=== PATIENT | female | born 1985 | race Caucasian/White ===

== ENCOUNTER 2024-03-07 01:04 | Emergency (ER) | payer OTHER, SELFPAY ==
[2024-03-07 01:12] VITALS: BP 156/104
--- NOTE | 2024-03-07 02:30 | ED.GENMED ---
History of Present Illness
General
Chief Complaint: Musculo-Skeletal Complaint
Source: patient
Time Seen by Provider: 03/07/24 02:24
History of Present Illness
History of Present Illness:
38-year-old female with past medical history of previous stomach ulcer presenting to the ER for evaluation of right knee pain after she injured it twice in the last 4 days. Patient states that she excellently tripped and fell onto the right knee
and then this evening while attempting to ambulate throughout her house states her right knee gave out from her and caused her to land on the right knee again. Since that time she notes that she felt a popping sensation and has been having
difficulty ambulating and placing full weight onto the right lower extremity. Denies any previous history of injury or surgery. No other concerns.
Past History
Past History
ED Past Medical History: GERD and Other (Lumbar disc disease)
ED Past Surgical History: Orthopedic
Social History
Tobacco: Non-smoker
Alcohol: None
Drug: None
Personal: Single
Living: with family
Employment: Not employed
Family History
Family History: Other (Noncontributory)
Review of Systems
Review of Systems
All Other Systems: ROS reviewed and negative except as documented in HPI and ROS
Phy Exam
Physical Exam
Physical Exam:
GENERAL: Alert , in no apparent distress
EYE: conjunctiva clear
Head: Normocephalic atraumatic
NECK: Supple,
ENT: mmm.
LUNGS: no acute respiratory distress
NEUROLOGICAL: Alert and oriented
SKIN: Warm and dry, skin intact.
MUSCULOSKELETAL: RLE: no obvious deformity, erythema, edema, ecchymosis. Allows for ROM but with discomfort. mild ttp anteriorly over patella
PSYCH: Normal and appropriate interaction.
Scores
Heart Failure Risk
Heart Failure Risk Score: Not Applicable
Heart Score for Chest Pain Patients
STEMI patient?: Not applicable
Withdrawal Assessment of Alcohol
Withdrawal Assessment Completed?: Not applicable
Course
Orders/Labs/Results
Orders:
Orders
03/07/24 01:38
Knee, Right 4 or More Views [CR Knee- Right 4 Or More View*] Urgent
Comment:
Reason For Exam: fall
03/07/24 02:24
Crutches-Treatment ONCE
Vital Signs
Initial and Last Documented VS:
Initial Vital Signs
Temp Pulse Resp BP Pulse Ox
97.8 F 80 24 156/104 98
03/07/24 01:12 03/07/24 01:12 03/07/24 01:12 03/07/24 01:12 03/07/24 01:12
Last Documented Vital Signs
Temp Pulse Resp BP Pulse Ox
97.8 F 80 24 156/104 98
03/07/24 01:12 03/07/24 01:12 03/07/24 01:12 03/07/24 01:12 03/07/24 01:12
MDM/Problems Addressed
Differential Diagnosis Includes:
knee sprain, contusion, ligamentous injury, fracture
MDM/Problems Addressed:
38-year-old female presenting to the emergency department for evaluation of right-sided knee pain following 2 separate falls/injuries. Based off mechanism I have minimal suspicion for fracture. Will obtain x-ray. Advised patient she may need to
follow-up with orthopedics for further evaluation and potential more advanced imaging if symptoms persist. Will place in knee immobilizer and crutches. Given her history of stomach ulcers patient unable to take NSAIDs. Advise she may take Tylenol
as needed for pain. Anticipate discharge home.
*Radiology
Radiology exam reviewed: preliminary read by ED provider (no fx)
*Pulse Oximetry
Patient hypoxic: no
*Critical Care Note
Total Time (30-74mins, 75-104mins- exclusive of procedures): Not Applicable
Patient Management
Escalation/DeEscalation of care consider admission/obs:
XR without evidence for fracture. Patient declines immobilizer but would like [place] wrap. Crutches supplied. Stable for d/c and outpatient ortho management as needed
ED Attending Note
-
Portions of this chart may have been created with voice recognition software.� Occasional wrong word or��sound alike� substitutions may have occurred due to the inherent limitations of voice recognition software.
Discharge Plan
Departure
Patient Disposition: Home (Routine Discharge)
Date of Disposition: 03/07/24
Time of Disposition: 02:41
Patient with high blood pressure during this ER visit?: Yes
Discharge Problem:
Knee pain, right
Instructions: Knee Pain ED
Prescriptions:
No Action
acetaminophen 325 MG tablet
650 mg PO Q4HPRN PRN (Reason: pain)
tramadol [Ultram] 50 MG tablet
50 mg PO PRN PRN (Reason: pain)
Patient Comments:
back pain
pantoprazole 40 MG tablet,delayed release (DR/EC)
40 mg PO DAILY
Referrals:
Vinay Montes De Oca MD [Active] - (Ortho)
Stand Alone Forms: Return to Work
Interventions
Interventions:
*Risk Screen - Suicide Last Done: 03/07/24 01:12
*Neglect/Abuse Screening Last Done: 03/07/24 01:12
*Nursing Disposition Last Done: 03/07/24 03:40
ED-Musculoskeletal Assessment Last Done: 03/07/24 03:40
Discharge Date and Time
Discharge Date/Time: 03/07/24 03:41
Print Language: ITALIAN
== END 2024-03-07 03:41 | disposition home or self-care (01) ==
LOC: EMR 01:04
PROVIDERS: EMERGENCY PHYSICIAN Emergency Medicine; FAMILY PHYSICIAN Nurse Practitioner
DX: M25.561 Pain in right knee (principal); W01.0XXA Fall on same level from slipping, tripping and stumbling without subsequent striking against object, initial encounter; K21.9 Gastro-esophageal reflux disease without esophagitis; Z87.11 Personal history of peptic ulcer disease
CPT/HCPCS: 99283; 73564

== ENCOUNTER 2024-07-07 21:19 | Emergency (ER) | payer OTHER, SELFPAY ==
[2024-07-07 21:28] VITALS: BP 161/102
[2024-07-07 21:47] LABS: % Basophils 0.7 % (0-2); % Eosinophils 0.9 % (0-6); % Immature Granulocytes 0.5 % (0-0.5); % Lymphocytes 19.2 % (20.5-51.1); % Monocytes 5.7 % (1.7-9.3); Absolute Basophils 0.1 10^3/uL (0-0.2); Absolute Eosinophils 0.1 10^3/uL (0-0.7); Absolute Immature Granulocytes 0.1 10^3/uL (0-0.05); Absolute Lymphocytes 2.2 10^3/uL (1.2-3.4); Absolute Monocytes 0.7 10^3/uL (0.1-0.6); Absolute Neutrophils 8.5 10^3/uL (1.4-6.5); Hematocrit 43.1 % (37.0-47.0); Hemoglobin 14.8 g/dL (12.0-16.0); Mean Corp Hgb Conc. 34.3 g/dL (33.0-37.0); Mean Corpuscular Hgb 27.1 pg (27.0-31.0); Mean Corpuscular Volume 78.8 fL (81.0-99.0); Mean Platelet Volume 10.1 fL (7.4-10.4); Nucleated Red Blood Cells % 0 %; Platelet Count 273 10^3/uL (130-400); Red Blood Cell Count 5.47 10^6/uL (4.20-5.40); Red Cell Dist. Width 12.9 % (11.5-14.5); White Blood Cell Count 11.6 10^3/uL (4.8-10.8)
[2024-07-07 21:54] LABS: Urine Albumin 2+ (Neg - Trace); Urine Bilirubin Negative (Negative); Urine Character Clear (Clear); Urine Color Yellow; Urine Glucose 4+ (Negative); Urine Ketone 2+ (Negative); Urine Leukocyte Negative (Negative); Urine Nitrite Negative (Negative); Urine Occult Blood 3+ (Negative); Urine Specific Gravity 1.025 (<1.030); Urine Urobilinogen Negative (Neg - 1+)
[2024-07-07 21:56] LABS: HCG, Serum Qualitative Screen Negative
[2024-07-07 22:01] LABS: ALT (SGPT) 49 U/L (0-35); AST (SGOT) 37 U/L (14-36); Albumin 4.4 g/dl (3.5-5.0); Alkaline Phosphatase 174 U/L (38-126); Blood Urea Nitrogen 18 mg/dl (7-17); Calcium 10.2 mg/dl (8.4-10.2); Carbon Dioxide 26 mmol/L (22-30); Chloride 97 mmol/L (98-107); Glucose 364 mg/dl (70-99); Potassium 4.2 mmol/L (3.5-5.1); Sodium 134 mmol/L (135-145); Total Bilirubin 0.9 mg/dl (0.2-1.3); Total Protein 7.3 g/dl (6.3-8.2); eGFR > 60.00
[2024-07-07 22:26] LABS: Urine Squamous Cell 26-30 /LPF (Few); Urine White Cell 0-2 /HPF (0-5)
[2024-07-08] VITALS: BMI 37.3
[2024-07-08 00:03] VITALS: BP 128/76
[2024-07-08] MEDS: NSS 1000 IV (01:09)
--- NOTE | 2024-07-08 01:21 | ED.GENMED ---
History of Present Illness
General
Chief Complaint: Abnormal Lab Value
Source: patient
Exam Limitations: none
Time Seen by Provider: 07/08/24 00:23
Nursing documentation reviewed up to this point in time: agreed with
History of Present Illness
History of Present Illness:
39-year-old female presenting to the emergency department for evaluation of elevated blood sugar. Patient states she has been dealing with a sinus infection for which she has completed a course of doxycycline without complete resolution symptoms.
She was seen in an urgent care facility yesterday regarding persistent sinus infection where she was found to have an elevated heart rate, elevated white blood cell count, and elevated glucose level. They were unable to obtain IV access to provide
IV fluids and therefore today it was recommended she come to the emergency department.
Patient does state that she was started on a new antibiotic yesterday by urgent care however she does not remember the name. Patient has been trying to stay well-hydrated although states she has been very busy with her kids. Patient denies any
fever, abdominal pain, nausea/vomiting, or diarrhea. Patient states her sinus infection symptoms are mildly improved today. No severe headache, dizziness, visual changes, etc.
She also reports mild lower back discomfort which is mildly worse than her baseline.
Patient does not have a known history of diabetes although she did suffer from gestational diabetes in one of her pregnancies
Past History
Past History
ED Past Medical History: GERD and Other (Lumbar disc disease)
ED Past Surgical History: Orthopedic
Social History
Tobacco: Non-smoker
Alcohol: None
Drug: None
Personal: Single
Living: with family
Employment: Not employed
Family History
Family History: Other (Noncontributory)
Review of Systems
Review of Systems
Allergies reviewed?: Yes
All Other Systems: ROS reviewed and negative except as documented in HPI and ROS
Phy Exam
Physical Exam
Physical Exam:
Vitals: Hypertensive and mildly tachycardic on arrival although improved by my assessment. Afebrile
General: Patient is well appearing, no acute distress
Skin: Warm and dry, no rashes or lesions
Head: Normocephalic, atraumatic
Eyes: Sclera nonicteric. EOMs intact. No nystagmus.
Throat: Mildly dry mucous membranes. Protecting airway
Neck: Normal ROM, no cervical spine tenderness, no meningismus
Cardiac: Regular rate and rhythm, no murmurs.
Pulm: Normal respiratory effort, no wheezes, rales, rhonchi heard on exam.
Abdomen: Abdomen soft and nontender. No abdominal tenderness. No CVA tenderness.
Back: No midline spinal tenderness.
Extremities: No evidence of cyanosis or edema. Palpable DP pulses bilaterally
Neuro: AAOx3. Grossly intact.
Psychiatric: Normal affect.
Course
Orders/Labs/Results
Orders:
Orders
07/07/24 21:30
Electrocardiogram (*1) Urgent
Reason for Study: Chest Pain
EKG- Treatment ONCE
Test Result ONCE
07/07/24 21:39
Complete Blood Count/With Diff Urgent
Comprehensive Metabolic Panel Urgent
HCG, Serum Qualitative Screen Urgent
Comment: Notify provider if positive test present
07/07/24 21:45
Urinalysis Reflex To Culture Urgent
Date Specimen was Collected: 07/07/24
Time Specimen was Collected: 21:30
Urine Microscopic Reflex Cult Urgent
07/08/24 00:38
0.9% Sodium Chloride 1000 ml [Nss] 1,000 ml IV BOLUS
07/08/24 01:11
US Abdomen Complete/Upper Urgent
Comment:
Reason For Exam: low back pain, elevated LFTs
Abnormal Lab Results
07/07/24 07/07/24 07/08/24
21:39 21:45 02:37
WBC 11.6 H 10^3/uL
(4.8-10.8)
RBC 5.47 H 10^6/uL
(4.20-5.40)
MCV 78.8 L fL
(81.0-99.0)
Abs Immat Gran (auto) 0.1 H 10^3/uL
(0-0.05)
Absolute Neuts (auto) 8.5 H 10^3/uL
(1.4-6.5)
Absolute Monos (auto) 0.7 H 10^3/uL
(0.1-0.6)
Lymphocytes % 19.2 L %
(20.5-51.1)
Sodium 134 L mmol/L
(135-145)
Chloride 97 L mmol/L
(98-107)
BUN 18 H mg/dl
(7-17)
Glucose 364 H mg/dl
(70-99)
AST 37 H U/L
(14-36)
ALT 49 H U/L
(0-35)
Alkaline Phosphatase 174 H U/L
(38-126)
Urine Ketones 2+ A
(Negative)
Ur Occult Blood Reflex 3+ A
(Negative)
Urine RBC 7-10 A /HPF
(0-2)
Urine Glucose 4+ A
(Negative)
Urine Albumin (Reflex) 2+ A
(Neg - Trace)
POC Glucose 261 H mg/dl
(70-99)
07/07/24 21:39
07/07/24 21:39
Vital Signs
Initial and Last Documented VS:
Initial Vital Signs
Temp Pulse Resp BP Pulse Ox
97.8 F 112 20 161/102 99
07/07/24 21:28 07/07/24 21:28 07/07/24 21:28 07/07/24 21:28 07/07/24 21:28
Last Documented Vital Signs
Temp Pulse Resp BP Pulse Ox
98.8 F 90 17 127/67 99
07/08/24 00:03 07/08/24 02:15 07/08/24 02:15 07/08/24 02:15 07/08/24 02:15
MDM/Problems Addressed
Differential Diagnosis Includes:
Not limited to: Acute hyperglycemia, new onset diabetes, acute dehydration, sinusitis, nephrolithiasis, UTI, etc.
MDM/Problems Addressed:
39-year-old female currently being treated for sinusitis presents with hyperglycemia and concerns for dehydration. Patient denies fever, abdominal pain, nausea/vomiting or diarrhea. Patient initially hypertensive and tachycardic on arrival
although improved by my assessment. Patient is afebrile. Physical exam as above. Basic labs initiated in triage and reviewed. Mild leukocytosis of 11.6. Chemistry shows acute hyperglycemia with glucose of 364 without anion gap. Transaminitis
noted. test negative. Urine does show 7-10 RBCs although patient thinks she may be starting her menstrual cycle. EKG without acute abnormalities. Patient appears dry. Suspect acute hyperglycemia related to acute dehydration and
possible infectious component with sinusitis. Other considerations include potentially prediabetes/new onset diabetes. Low suspicion for acute abdominal process including obstructive uropathy. Do not feel CT imaging warranted at this time.
However�will obtain abdominal ultrasound given microscopic hematuria and transaminitis. Will obtain IV access and give 1 L IV fluid and reassess glucose levels.
Update: Ultrasound of abdomen without acute findings. Patient did receive 1 L IV fluids. Patient's vital signs have normalized. Her glucose has decreased to 261. Patient very well-appearing and afebrile without evidence of significant infectious
process at this time. Do not feel admission is indicated at this time. I suspect some component of dehydration however discussed with patient importance of completing antibiotic therapy for suspected sinusitis and very close follow-up with PCP
given hyperglycemia. Considered steroids given persistent sinusitis although will avoid given hyperglycemia. Advised patient to stay very well-hydrated and follow with PCP to have glucose and LFTs rechecked. Close return precautions discussed.
Patient verbalized understanding. Case discussed with attending physician.
Chronic conditions affecting care:
N/A
Acute Exacerbation and/or Progression of Chronic Illness:
Acute hyperglycemia
*Radiology
Radiology exam reviewed: radiology read reviewed
*Pulse Oximetry
Patient hypoxic: no
*EKG
Interpreted by ED Provider?: Yes
EKG Intrepretation Date: 07/08/24
Interpretation: abnormal
Comparison EKG: no changes
Heart Rate: 108
Rate: tachycardiac
Rhythm: sinus
[place]: normal axis
Interval: normal interval
QRS Pattern: normal QRS
Ischemia: no ischemia
*[employer] Interpretation
Rate: normal
Interpretation: normal
Heart Rate: 92
Rhythm: sinus
*Critical Care Note
Total Time (30-74mins, 75-104mins- exclusive of procedures): Not Applicable
ED Attending Note
-
Portions of this chart may have been created with voice recognition software.� Occasional wrong word or��sound alike� substitutions may have occurred due to the inherent limitations of voice recognition software.
Discharge Plan
Departure
Patient Disposition: Home (Routine Discharge)
Date of Disposition: 07/08/24
Time of Disposition: 02:51
Patient with high blood pressure during this ER visit?: Yes
Condition: Good
Covid-19: Not Applicable
Discharge Problem:
Acute hyperglycemia, Acute dehydration
Instructions: Dehydration, Adult (DC), High blood sugar in adults - ED discharge instructions, BLOOD PRESSURE
Prescriptions:
No Action
acetaminophen 325 MG tablet
650 mg PO Q4HPRN PRN (Reason: pain)
tramadol [Ultram] 50 MG tablet
50 mg PO PRN PRN (Reason: pain)
Patient Comments:
back pain
pantoprazole 40 MG tablet,delayed release (DR/EC)
40 mg PO DAILY
Referrals:
UNKNOWN - PT DOES,NOT KNOW [Family Provider] -
Activity Restrictions/Additional Instructions:
RETURN TO THE EMERGENCY DEPARTMENT WITH ANY HIGH FEVERS, SEVERE HEADACHE, SEVERE ABDOMINAL PAIN, INTRACTABLE NAUSEA/VOMITING, WORSENING IN CURRENT SYMPTOMS, OR ANY OTHER CONCERNS
-As discussed�your ultrasound the emergency department showed no acute abnormalities today.
-Your blood sugar was elevated at 364 upon arrival to the emergency department. You did receive a liter of IV fluids. Your blood sugar decreased to 261 following IV fluids.
-It is important that you stay very well-hydrated. Continue to take your antibiotics as prescribed.
-As discussed�your liver function tests were also elevated in the emergency department. You should have these rechecked with your primary care provider in a few weeks to ensure that they normalize
-Follow-up with primary regarding elevated blood sugar as this may require further testing
Monitor your symptoms closely and return to the emergency department with any acute worsening/new symptoms or any other concerns
Interventions
Interventions:
*Risk Screen - Suicide Last Done: 07/07/24 21:28
*General Assessment Last Done: 07/08/24 00:01
*Neglect/Abuse Screening Last Done: 07/07/24 21:28
*ED COVID-19 Vaccine History Last Done: 07/08/24 00:01
*Nursing Disposition Last Done: 07/08/24 03:07
Discharge Date and Time
Discharge Date/Time: 07/08/24 03:07
Print Language: HUNGARIAN
[2024-07-08 02:15] VITALS: BP 127/67
[2024-07-08 02:38] LABS: Glucose - Point of Care 261 mg/dl (70-99)
== END 2024-07-08 03:07 | disposition home or self-care (01) ==
LOC: EMR 21:19
PROVIDERS: Student in an Organized Health Care Education/Training Program; EMERGENCY PHYSICIAN Student in an Organized Health Care Education/Training Program
DX: R73.9 Hyperglycemia, unspecified (principal); K21.9 Gastro-esophageal reflux disease without esophagitis; E86.0 Dehydration; R31.29 Other microscopic hematuria
CPT/HCPCS: 99284; 96360; 76700; 80053; 81003; 81015; 82962; 84703; 85025; 93005

== ENCOUNTER 2024-08-04 12:46 | Emergency (ER) | payer OTHER, SELFPAY ==
[2024-08-04 12:51] VITALS: BP 158/106
[2024-08-04 12:54] LABS: Glucose - Point of Care 520 mg/dl (70-99)
[2024-08-04 13:05] VITALS: BMI 31.2
[2024-08-04] MEDS: NSS 1000 IV ×2 (13:32→15:10)
--- NOTE | 2024-08-04 13:32 | ED.GENMED ---
History of Present Illness
General
Chief Complaint: Blood Sugar Problem
Time Seen by Provider: 08/04/24 13:05
History of Present Illness
History of Present Illness:
39-year-old female presenting to the emergency department for high sugar. Patient presents to urgent care where she went for concern of bronchitis. Notes she is been having cough and shortness of breath, was started on a Z-Salo and steroids. She
is on her last dose of steroids today. They checked her sugar today, noted that it was elevated. Reports that she has had a cough, fever, chest pain, abdominal pain, nausea, vomiting. Denies any polyuria or polydipsia. Denies any known history
of diabetes. Does note family history of diabetes, her mother. Denies additional acute medical complaints
Past History
Past History
ED Past Medical History: GERD and Other (Lumbar disc disease)
ED Past Surgical History: Orthopedic
Social History
Tobacco: Non-smoker
Alcohol: None
Drug: None
Personal: Single
Living: with family
Employment: Not employed
Family History
Family History: Other (Noncontributory)
Phy Exam
Physical Exam
Physical Exam:
General: Well-appearing, no clinical signs of dehydration, nontoxic and in no acute distress
HEENT: protecting airway
Neck: appears supple
CV: Normal heart rate, regular rhythm
Resp: No accessory muscle use, no increased work of breathing, lungs clear to auscultation bilaterally
Abd: Soft and non-distended, no tenderness to palpation
Extremities: No deformities, no swelling
Neuro: alert, no focal neurologic deficit
: deferred
Rectal: deferred
Psych: Normal affect
Skin: Intact
Course
Orders/Labs/Results
Orders:
Orders
08/04/24 13:08
0.9% Sodium Chloride 1000 ml [Nss] 1,000 ml IV BOLUS
08/04/24 13:22
B-Hydroxybutyrate Urgent
Basic Metabolic Panel Urgent
Complete Blood Count/With Diff Urgent
Venous Blood Gas Urgent
%Oxygen/Room Air: 21
08/04/24 14:22
0.9% Sodium Chloride 1000 ml [Nss] 1,000 ml IV BOLUS
08/04/24 14:57
Potassium Urgent
Abnormal Lab Results
08/04/24 08/04/24 08/04/24
12:53 13:22 15:05
WBC 14.1 H 10^3/uL
(4.8-10.8)
RBC 5.57 H 10^6/uL
(4.20-5.40)
MCV 78.3 L fL
(81.0-99.0)
MCH 26.9 L pg
(27.0-31.0)
MPV 10.7 H fL
(7.4-10.4)
Abs Immat Gran (auto) 0.1 H 10^3/uL
(0-0.05)
Absolute Neuts (auto) 9.1 H 10^3/uL
(1.4-6.5)
Absolute Lymphs (auto) 4.3 H 10^3/uL
(1.2-3.4)
Immature Gran % 0.6 H %
(0-0.5)
VBG pH 7.54 H
(7.32-7.43)
VBG pCO2 29 L mmHg
(35-48)
VBG pO2 206 H mmHg
(30-50)
Sodium 133 L mmol/L
(135-145)
Chloride 93 L mmol/L
(98-107)
BUN 20 H mg/dl
(7-17)
Glucose 518 H* mg/dl
(70-99)
Calcium 10.7 H mg/dl
(8.4-10.2)
B-Hydroxybutyrate 0.51 H mmol/L
(0.02-0.27)
POC Glucose 520 H* mg/dl 362 H mg/dl
(70-99) (70-99)
08/04/24 13:22
Vital Signs
Initial and Last Documented VS:
Initial Vital Signs
Temp Pulse Resp BP Pulse Ox
97.4 F 95 16 158/106 98
08/04/24 12:51 08/04/24 12:51 08/04/24 12:51 08/04/24 12:51 08/04/24 12:51
Last Documented Vital Signs
Temp Pulse Resp BP Pulse Ox
97.4 F 95 16 134/100 99
08/04/24 12:51 08/04/24 12:51 08/04/24 12:51 08/04/24 15:00 08/04/24 15:00
MDM/Problems Addressed
MDM/Problems Addressed:
39-year-old female presenting for hyperglycemia. Vital signs on arrival are significant for high blood pressure.
On exam, patient resting comfortably, no acute distress or discomfort. No clinical signs of dehydration. She is afebrile, nontoxic. Sugar checked on arrival, greater than 500. At this time suspect new onset diabetes. Patient denies any known
history of hyperglycemia, however on review of EMR, was seen in June for dehydration and at that time sugar was in 300 range. It was suspected that her sugar at that time could be secondary to dehydration. Ultimately, at this time suspect
underlying diagnosis of diabetes. Will screen with laboratory analysis to ensure no concerning features to suggest DKA. Will start on IV fluids to bring glucose down.
14:20 -no metabolic acidosis. No anion gap. Mild elevation of beta hydroxybutyrate. Will continue IV fluids until sugar is appropriately downtrending
15:00 -sugars appropriately downtrending. Will administer additional liter of fluids with plan for discharge and initiation of metformin. Patient will require close outpatient follow-up with her primary care doctor.
*Critical Care Note
Total Time (30-74mins, 75-104mins- exclusive of procedures): Not Applicable
ED Attending Note
-
Portions of this chart may have been created with voice recognition software.� Occasional wrong word or��sound alike� substitutions may have occurred due to the inherent limitations of voice recognition software.
Discharge Plan
Departure
Prescriptions:
No Action
azithromycin 250 mg Tablet
0 mg PO .COMPLEX
Rx Instructions:
For 250 mg dose pack: take 500 mg today (day 1), then 250 mg for 4 days (days 2-5)
sucralfate [Carafate] 1 gram Tablet
1 g PO AC
benzonatate 100 mg Capsule
100 mg PO TIDPRN PRN (Reason: cough)
methylprednisolone [Medrol (Salo)] 4 mg Tablets,Dose Pack
0 mg PO PER PKG DIR
albuterol sulfate [ProAir HFA] 90 mcg/actuation Hfa Aerosol Inhaler
2 puff INHALATION R Q6HPRN PRN (Reason: sob)
Referrals:
Huy Wong [Other]
Carley Devlin CRNP [Family Provider] -
Interventions
Interventions:
*Risk Screen - Suicide Last Done: 08/04/24 13:05
*General Assessment Last Done: 08/04/24 13:05
*Neglect/Abuse Screening Last Done: 08/04/24 13:05
*ED- Fall Risk Assessment Last Done: 08/04/24 13:05
*ED COVID-19 Vaccine History Last Done: 08/04/24 13:05
ED- Neurological Assessment Last Done: 08/04/24 13:05
Discharge Date and Time
Print Language: TELUGU
[2024-08-04 13:39] LABS: % Basophils 0.4 % (0-2); % Eosinophils 0.1 % (0-6); % Immature Granulocytes 0.6 % (0-0.5); % Lymphocytes 30.6 % (20.5-51.1); % Monocytes 3.8 % (1.7-9.3); % Neutrophils 64.5 % (42.2-75.2); Absolute Basophils 0.1 10^3/uL (0-0.2); Absolute Immature Granulocytes 0.1 10^3/uL (0-0.05); Absolute Lymphocytes 4.3 10^3/uL (1.2-3.4); Absolute Monocytes 0.5 10^3/uL (0.1-0.6); Absolute Neutrophils 9.1 10^3/uL (1.4-6.5); Hematocrit 43.6 % (37.0-47.0); Mean Corp Hgb Conc. 34.4 g/dL (33.0-37.0); Mean Corpuscular Hgb 26.9 pg (27.0-31.0); Mean Corpuscular Volume 78.3 fL (81.0-99.0); Mean Platelet Volume 10.7 fL (7.4-10.4); Nucleated Red Blood Cells % 0 %; Platelet Count 338 10^3/uL (130-400); Red Blood Cell Count 5.57 10^6/uL (4.20-5.40); White Blood Cell Count 14.1 10^3/uL (4.8-10.8)
[2024-08-04 13:51] LABS: Venous Blood Gas B.E. 3.4 mmol/L (-4 to +4); Venous Blood Gas HCO3 24.8 mmol/L (22-27); Venous Blood Gas O2 Sat % 99.7 %; Venous Blood Gas pCO2 29 mmHg (35-48); Venous Blood Gas pH 7.54 (7.32-7.43); Venous Blood Gas pO2 206 mmHg (30-50)
[2024-08-04 14:06] LABS: B-Hydroxybutyrate 0.51 mmol/L (0.02-0.27); Blood Urea Nitrogen 20 mg/dl (7-17); Calcium 10.7 mg/dl (8.4-10.2); Carbon Dioxide 30 mmol/L (22-30); Chloride 93 mmol/L (98-107); Estimated Creatinine Clearance 114 ml/min; Sodium 133 mmol/L (135-145); eGFR > 60.00
[2024-08-04 14:07] LABS: Glucose 518 mg/dl (70-99)
[2024-08-04 14:13] VITALS: BP 132/74
[2024-08-04 15:00] VITALS: BP 134/100
[2024-08-04 15:07] LABS: Glucose - Point of Care 362 mg/dl (70-99)
[2024-08-04] MEDS: GLUCOPHAGE 500 MG PO (15:28)
[2024-08-04 16:31] LABS: Glucose - Point of Care 342 mg/dl (70-99)
== END 2024-08-04 16:36 | disposition home or self-care (01) ==
LOC: EMR 12:46
PROVIDERS: EMERGENCY PHYSICIAN Student in an Organized Health Care Education/Training Program; FAMILY PHYSICIAN Nurse Practitioner
DX: E11.9 Type 2 diabetes mellitus without complications (principal); K21.9 Gastro-esophageal reflux disease without esophagitis; Z83.3 Family history of diabetes mellitus
CPT/HCPCS: 99283; 96360; 96361; 80048; 82010; 82805; 82962; 85025